=== PATIENT | female | born 1945 | race Two or more races ===

== ENCOUNTER → 2017-07-23 | Emergency (ER) | payer OTHER ==
[~2017-07-23] VITALS: Ht 152.4 cm; Wt 63.5 kg
[~2017-07-23] MED LIST: ASA81 MG PO; ATENOLOL25 GM MC; CARDIZEM CD180 MG; HYZAAR 100-12.1 EACH; VOLTAREN-XR100 MG; XANAX0.25 MG PO; ZOLOFT50 MG
== END | disposition home or self-care (01) ==
LOC: ER 12:17
DX: K29.70 Gastritis, unspecified, without bleeding (principal)

== ENCOUNTER → 2017-11-03 | Outpatient (CLI) | payer OTHER | END | disposition home or self-care (01) | LOC: NUCLEAR 10-20 11:00 | DX: I70.0 Atherosclerosis of aorta (principal); I67.89 Other cerebrovascular disease ==

== ENCOUNTER 2018-01-04 14:39 | Outpatient (CLI) | payer OTHER | END 2018-01-04 15:04 | disposition home or self-care (01) | LOC: RAD 501 14:39 | DX: M25.551 Pain in right hip (principal); M25.552 Pain in left hip; M79.651 Pain in right thigh; M79.652 Pain in left thigh; M25.561 Pain in right knee; M25.562 Pain in left knee; M79.604 Pain in right leg; M79.605 Pain in left leg; M25.571 Pain in right ankle and joints of right foot; M25.572 Pain in left ankle and joints of left foot; M54.5 Low back pain ==

== ENCOUNTER 2018-01-19 14:22 | Emergency (ER) | payer OTHER ==
[~2018-01-19] VITALS: Ht 152.4 cm; Wt 56.7 kg
== END 2018-01-19 19:33 | disposition home or self-care (01) ==
LOC: ER 14:22
DX: M17.11 Unilateral primary osteoarthritis, right knee (principal); M54.5 Low back pain

== ENCOUNTER 2018-01-31 14:26 | Outpatient (CLI) | payer OTHER | END 2018-01-31 14:29 | disposition home or self-care (01) | LOC: NUCLEAR 14:26 | DX: M81.0 Age-related osteoporosis without current pathological fracture (principal) ==